=== PATIENT | male | born 1945 | race Caucasian/White ===

== ENCOUNTER 2020-08-14 20:23 | Emergency (ER) | payer OTHER ==
[~2020-08-14] VITALS: Ht 167.6 cm; Wt 65.3 kg
[~2020-08-14 20:23] MED LIST: ASPI81CH PO; CLIN300 PO; Daily Multiple1 EACH PO; GLUC500 PO; LISI5 PO; METO25 PO; OXYC5 PO; Senna-Docusate1 EACH PO; Simvastatin20 MG PO; Tylenol325 MG PO
[2020-08-14 20:44] LABS: BASOPHILS ABSOLUTE AUTO 0.02 K/mm3 (0.00-0.23); BASOPHILS PERCENT AUTO 0 % (0-2); EOSINOPHILS ABSOLUTE AUTO 0.02 K/mm3 (0.00-0.68); EOSINOPHILS PERCENT AUTO 0 % (0-6); Hemoglobin 13.5 g/dL (13.5-17.5); IMMATURE GRAN ABSOLUTE AUTO 0.05 K/mm3 (0.00-0.10); IMMATURE GRAN PERCENT AUTO 0 % (0-1); LYMPHOCYTES ABSOLUTE AUTO 0.88 K/mm3 (0.84-5.20); LYMPHOCYTES PERCENT AUTO 7 % (21-46); MONOCYTES ABSOLUTE AUTO 0.69 K/mm3 (0.16-1.47); MONOCYTES PERCENT AUTO 6 % (4-13); Mean Corpuscular HGB 27.3 pg (26.0-34.0); Mean Corpuscular HGB Conc 32.1 g/dL (31.5-36.5); Mean Corpuscular Volume 85 fL (80-100); Mean Platelet Volume 10.1 fL (9.1-12.4); NEUTROPHILS ABSOLUTE AUTO 10.92 K/mm3 (1.96-9.15); NEUTROPHILS PERCENT AUTO 87 % (41-73); Platelet Count 204 K/mm3 (150-400); RDW Standard Deviation 46.8 fL (35.1-46.3); Red Blood Cell Count 4.94 M/mm3 (4.30-5.90); White Blood Cell Count 12.58 K/mm3 (4.00-11.30)
[2020-08-14 21:03] LABS: Alanine Aminotransfer (ALT/SGP 36 U/L (12-78); Albumin, Blood 4.3 g/dL (3.4-5.0); Albumin/Globulin Ratio 1.1 (0.8-1.8); Alk Phos 57 U/L (50-136); Anion Gap 7 mmol/L (6-16); Aspartate Aminotrans (AST/SGOT 28 U/L (12-37); Bilirubin, Total 0.5 mg/dL (0.1-1.0); Blood Urea Nitrogen 21 mg/dL (8-24); Bun/Creatinine Ratio 23.6 (12.0-20.0); CO2, Blood 29 mmol/L (21-32); Calcium, Blood 9.7 mg/dL (8.5-10.1); Chloride, Blood 108 mmol/L (98-108); Creatinine, Blood 0.89 mg/dL (0.60-1.20); Globulin, Blood 3.9 g/dL (2.2-4.0); Glomerular Filtration Rate >60 (60-); Glucose, Blood 100 mg/dL (70-99); Potassium, Blood 3.6 mmol/L (3.5-5.5); Sodium, Blood 144 mmol/L (136-145); Total Protein, Blood 8.2 g/dL (6.4-8.2)
[2020-08-14 21:28] LABS: Source, Urine Clean Catch
[2020-08-14 21:31] LABS: Appearance, Urine Hazy (Clear); Bilirubin, Urine Neg (Neg); Blood, Urine 5+ (Neg); Color, Urine Yellow (P-Yellow); Glucose Qualitative, Urine Neg (Neg); Ketones, Urine 2+ (Neg); Leukocyte Esterase, Urine 3+ (Neg); Nitrite, Urine Neg (Neg); Protein, Urine 3+ (Neg); Urobilinogen, Urine NORM (Normal)
[2020-08-14 21:41] LABS: White Blood Cells, Urine TNTC /hpf (0-5)
[2020-08-14 21:42] LABS: Bacteria Many /hpf; Red Blood Cells, Urine 50-100 /hpf (0-2); Squamous Epithelial Cells Few /hpf (Few)
[2020-08-14] MEDS ORDERED: Keflex500 MG PO (23:05)
== END 2020-08-15 00:20 | disposition home or self-care (01) ==
LOC: ER 20:23
PROVIDERS: Emergency Medicine
DX: N39.0 Urinary tract infection, site not specified (principal); I25.10 Atherosclerotic heart disease of native coronary artery without angina pectoris; E78.5 Hyperlipidemia, unspecified; I10 Essential (primary) hypertension; Z79.82 Long term (current) use of aspirin; Z79.899 Other long term (current) drug therapy
CPT/HCPCS: 36415; 51701; 74176; 80053; 81001; 85025; 87077; 87086; 87186; 96365; 99284-25; J0696

== ENCOUNTER 2021-06-10 10:23 | Observation (INO) | payer OTHER ==
[~2021-06-10] VITALS: Ht 172.7 cm; Wt 73.0 kg
[~2021-06-10 10:23] MED LIST changes: +ASPIR 8181 M1 PO; +CEFP200 PO; +Cymbalta20 MG PO; -Daily Multiple1 EACH PO; +Hair, Skin & N1 EACH PO; +Keflex500 MG PO; -LISI5 PO; +WATER PILL; +ZESTRIL40 MG PO
[2021-06-10 12:58] LABS: BASOPHILS ABSOLUTE AUTO 0.01 K/mm3 (0.00-0.23); BASOPHILS PERCENT AUTO 0 % (0-2); EOSINOPHILS ABSOLUTE AUTO 0.09 K/mm3 (0.00-0.68); EOSINOPHILS PERCENT AUTO 2 % (0-6); Hematocrit 40.2 % (37.0-53.0); Hemoglobin 13.5 g/dL (13.5-17.5); IMMATURE GRAN ABSOLUTE AUTO 0.03 K/mm3 (0.00-0.10); IMMATURE GRAN PERCENT AUTO 1 % (0-1); LYMPHOCYTES ABSOLUTE AUTO 1.08 K/mm3 (0.84-5.20); LYMPHOCYTES PERCENT AUTO 18 % (21-46); MONOCYTES PERCENT AUTO 8 % (4-13); Mean Corpuscular HGB 27.6 pg (26.0-34.0); Mean Corpuscular HGB Conc 33.6 g/dL (31.5-36.5); Mean Corpuscular Volume 82 fL (80-100); Mean Platelet Volume 11.1 fL (9.1-12.4); NEUTROPHILS PERCENT AUTO 72 % (41-73); Platelet Count 201 K/mm3 (150-400); RDW Standard Deviation 41.3 fL (35.1-46.3); White Blood Cell Count 6.11 K/mm3 (4.00-11.30)
[2021-06-10 13:06] LABS: SARS-Cov-2 (COVID-19) PCR, MMC NEGATIVE (NEGATIVE)
[2021-06-10 13:25] LABS: International Normalized Ratio 0.99; Prothrombin Time Results 10.7 Sec (9.7-11.5)
[2021-06-10 13:37] LABS: Alanine Aminotransfer (ALT/SGP 40 U/L (12-78); Albumin, Blood 3.9 g/dL (3.4-5.0); Alk Phos 55 U/L (50-136); Anion Gap 4 mmol/L (6-16); Aspartate Aminotrans (AST/SGOT 48 U/L (12-37); Bilirubin, Total 0.6 mg/dL (0.1-1.0); Blood Urea Nitrogen 12 mg/dL (8-24); Bun/Creatinine Ratio 18.1 (12.0-20.0); CO2, Blood 29 mmol/L (21-32); Calcium, Blood 9.2 mg/dL (8.5-10.1); Chloride, Blood 108 mmol/L (98-108); Creatinine, Blood 0.66 mg/dL (0.60-1.20); Glomerular Filtration Rate >60 (60-); Glucose, Blood 112 mg/dL (70-99); Sodium, Blood 141 mmol/L (136-145); Total Protein, Blood 7.9 g/dL (6.4-8.2)
[2021-06-10] MEDS ORDERED: ATOR40TA PO (13:40)
[2021-06-10] MEDS ORDERED: FINA5 PO (13:41)
[2021-06-10] MEDS ORDERED: AMLO10 PO (13:41)
[2021-06-10] MEDS ORDERED: TAMS.4ER PO (13:42)
[2021-06-10] MEDS ORDERED: TEMA15 PO (13:43)
--- NOTE | 2021-06-10 15:34 | NUR ---
PATIENT EATING LUNCH. MEDICATED FOR PAIN IN RLE. LEG ADJUST ON PILLOW AND ICE APPLIED.
--- NOTE | 2021-06-10 15:35 | NUR ---
PATIENT EATING LUNCH. MEDICATED FOR PAIN 8/10 IN RIGHT LEG. "IT FEELS LIKE A NELIDA HORSE", LEG ADJUSTED ON PILLOW. ICE PACK APPLIED TO LEG.
--- NOTE | 2021-06-10 23:56 | NUR ---
LATE ENTRY: 89 PT SICK WITH NAUSEA, VOMITED X2, PT WAS MEDICATED, CLEANED UP AND CHANGED INTO GOWN, ASSISTED HIM TO BED,VSS,PT WITH COMPLAINTS OF PAIN, RIGHT LEG ELEVATED WITH TWO PILLOWS,ICE PACK BEHIND THE KNEE PROVIDED, PAIN MEDICATION ADMINISTERED.I EXPLAINED TO PT NPO STATUS AFTER MIDNIGHT. HE WAS AGREEABLE,JUICE AND WATER PROVIDED.PT SELF CATHS. HE WAS PROVIDED SELF CATH ITEMS. URINE WAS CLEAR AND YELLOW.AFTER PT WAS COMFORTABLE, BED IN LOW POSITION,SIDE RAILS UP,CALL LIGHT WITHIN REACH. WILL CONTINUE TO MONITOR AND ALLOW FOR REST.
--- NOTE | 2021-06-11 02:34 | NUR ---
PT UP TO BATHROOM VIA WHEEL CHAIR. SELF CATH ITEMS PROVIDED. PT BACK TO BED, PAIN ASSESED, NO NEED FOR MEDICATION,ICE PACK PROVIDED. PT REQUESTED TABLET. TABLET PROVIDED. BED IN LOW POSITION,SIDE RAILS UP, CALL LIGHT WITHIN REACH. WILL CONTINUE TO MONITOR.
--- NOTE | 2021-06-11 04:49 | NUR ---
PT NPO SINCE MIDNIGHT. READY FOR SURGERY. 18G IV RIGHT HAND WAS PLACED,20G LEFT AC REMOVED. PT CURRENTLY COMFORTABLE WITH NO C/O PAIN. ICE AND TWO PILLOW ELEVATION APPEARS TO PROVIDE SOME RELIEF. PT VSS, WILL REPORT TO DAY SHIFT RN.
--- NOTE | 2021-06-11 10:32 | NUR ---
PT RESTING IN BED WATCHING [employer] ON IPAD. RIGHT LEG ELEVATED VIA BED AND PILLOW. FRESH ICE PACK APPLIED BEHIND KNEE. PT STS 03/21. TYLENOL DID NOT PROVIDE ANY RELIEF. PT CALM AND SPEAKING CLEARLY, FLACC SCORE 0. PT REMEDICATED WITH IV MEDICATION ORDERED.
--- NOTE | 2021-06-11 11:13 | NUR ---
CARE MANAGEMENT INTO SEE PT
--- NOTE | 2021-06-11 12:53 | NUR ---
DR. LOMBARDI INTO SEE PT.
--- NOTE | 2021-06-11 14:05 | NUR ---
PT SLEEPING, EQUAL CHEST RISE AND FALL NOTED. APPEARS IN NAD.
--- NOTE | 2021-06-11 14:34 | NUR ---
PT TO [facility] VIA GUY.
--- NOTE | 2021-06-11 18:29 | NUR ---
SHIFT SUMMARY PT AWAITING SURGERY TODAY, NPO. PT CALM & PLEASANT. PAIN TOLERATED WELL WITH BOTH ORAL AND IV MEDICATION. PT SELF-CATH IN RESTROOM VIA WHEELCHAIR, PER REQUEST. PT TO DAY SURGERY, SURGERY START TIME APPROX 1530.
--- NOTE | 2021-06-11 21:04 | NUR ---
LATE ENTRY: PT BACK TO [facility] AT 192.TOOK REPORT FROM NELSON GLASER.PT VERY SLEEPY,ENCOURAGED TO DEEP BREATHE, SATS 87-94% ON 2L NASAL CANNULA, BP ELEVATED (SEE TRENDS), PT WITHOUT PAIN OR NAUSEA, SPLINT INTACT,CAP REFILL GOOD, ASSISTED HIM TO SELF CATH.800CC OF URINE DRAINED. AFTER A HALF HOUR SATS GOOD O2 D/C BUT EVENTUALLY PUT BACK ON. PT STILL DROWSY,TOLERATING PO FLUIDS AND JELLO. BP REMAINED ELEVATED,EVENING MEDS GIVEN. CONSULTED WITH ANESTHESIA PROVIDER RE:BP. HE ADVISED PT TO GET BACK ON HOME MED ROUTINE AND CONTINUE TO MONITOR. NO FURTHER ORDERS GIVEN. RIGHT LEG WAS ELEVATED ON TWO PILLOW AND ICE PACK PROVIDED. WILL CONTINUE TO MONITOR AND D/C THE O2 WHEN APPROPRIATE.
--- NOTE | 2021-06-12 05:42 | NUR ---
PT SITTING UP IN BED, PLAYING A GAME ON HIS PHONE.DENIES PAIN OR NAUSEA. STATES "I CANT FEEL A THING". BLOCK APPEARS TO HAVE WORKED WELL. PT SLEPT THE WHOLE EVENING. O2 WAS D/C SOMETIME BEFORE 0500. SATS CURRENTLY 96% ON RA. DRESSING INTACT. WILL CONTINUE TO MONITOR AND REPORT TO DAY SHIFT RN.
[2021-06-12 09:01] LABS: BASOPHILS ABSOLUTE AUTO 0.01 K/mm3 (0.00-0.23); BASOPHILS PERCENT AUTO 0 % (0-2); EOSINOPHILS PERCENT AUTO 0 % (0-6); Hematocrit 36.4 % (37.0-53.0); Hemoglobin 12.4 g/dL (13.5-17.5); IMMATURE GRAN ABSOLUTE AUTO 0.03 K/mm3 (0.00-0.10); IMMATURE GRAN PERCENT AUTO 0 % (0-1); LYMPHOCYTES ABSOLUTE AUTO 0.54 K/mm3 (0.84-5.20); LYMPHOCYTES PERCENT AUTO 5 % (21-46); MONOCYTES ABSOLUTE AUTO 0.51 K/mm3 (0.16-1.47); MONOCYTES PERCENT AUTO 4 % (4-13); Mean Corpuscular HGB 27.9 pg (26.0-34.0); Mean Corpuscular HGB Conc 34.1 g/dL (31.5-36.5); Mean Corpuscular Volume 82 fL (80-100); Mean Platelet Volume 10.3 fL (9.1-12.4); NEUTROPHILS ABSOLUTE AUTO 10.98 K/mm3 (1.96-9.15); NEUTROPHILS PERCENT AUTO 91 % (41-73); Platelet Count 171 K/mm3 (150-400); RDW Coefficient Variation 13.8 % (11.7-14.2); RDW Standard Deviation 40.6 fL (35.1-46.3); Red Blood Cell Count 4.45 M/mm3 (4.30-5.90); White Blood Cell Count 12.07 K/mm3 (4.00-11.30)
[2021-06-12 09:23] LABS: Anion Gap 8 mmol/L (6-16); Blood Urea Nitrogen 16 mg/dL (8-24); Bun/Creatinine Ratio 22.4 (12.0-20.0); CO2, Blood 27 mmol/L (21-32); Calcium, Blood 8.9 mg/dL (8.5-10.1); Chloride, Blood 103 mmol/L (98-108); Creatinine, Blood 0.71 mg/dL (0.60-1.20); Glomerular Filtration Rate >60 (60-); Glucose, Blood 184 mg/dL (70-99); Potassium, Blood 3.6 mmol/L (3.5-5.5); Sodium, Blood 138 mmol/L (136-145)
[2021-06-12 16:28] LABS: SARS-Cov-2 (COVID-19) PCR, MMC NEGATIVE (NEGATIVE)
== END 2021-06-12 17:38 ==
LOC: ER 10:23 → ERHOLD 10:24 → ORSCIP 10:24 → ERHOLD 10:24 → ORSCIP 14:11
PROVIDERS: Emergency Medicine; Internal Medicine; Nurse Practitioner Acute Care; ADMIT Orthopaedic Surgery
DX: S82.301A Unspecified fracture of lower end of right tibia, initial encounter for closed fracture (principal); S82.831B Other fracture of upper and lower end of right fibula, initial encounter for open fracture type I or II; S50.311A Abrasion of right elbow, initial encounter; I25.10 Atherosclerotic heart disease of native coronary artery without angina pectoris; I10 Essential (primary) hypertension; F32.9 Major depressive disorder, single episode, unspecified; N40.0 Benign prostatic hyperplasia without lower urinary tract symptoms; E78.5 Hyperlipidemia, unspecified; F43.10 Post-traumatic stress disorder, unspecified; M19.90 Unspecified osteoarthritis, unspecified site; W17.81XA Fall down embankment (hill), initial encounter; Y92.828 Other wilderness area as the place of occurrence of the external cause; Z20.822 Contact with and (suspected) exposure to COVID-19; Z95.1 Presence of aortocoronary bypass graft; Z79.82 Long term (current) use of aspirin; Z91.038 Other insect allergy status
CPT/HCPCS: 29515; 36415; 73562-RT; 73590; 73610; 80048; 80053; 85025; 85610; 96365; 96366; 96374-59; 96375; 96375-59; 96376; 96376-59; 97116; 97162; 97165; 97530; 99284-25; A9270; C1713; C1769; G0378; J0171; J0690; J1100; J1170; J1885; J2250; J2370; J2405; J2704; J3010; J7120; U0004

== ENCOUNTER 2022-08-29 18:20 | Emergency (ER) | payer OTHER ==
[~2022-08-29] VITALS: Ht 170.2 cm; Wt 77.1 kg
[~2022-08-29 18:20] MED LIST changes: +AMLO10 PO; +ATOR40TA PO; +FINA5 PO; +TAMS.4ER PO; +TEMA15 PO
[2022-08-29 19:59] LABS: Influenza A, PCR NEGATIVE (NEGATIVE); Influenza B, PCR NEGATIVE (NEGATIVE); Resp Syncytial Virus, PCR NEGATIVE (NEGATIVE)
[2022-08-29 20:14] LABS: SARS-Cov-2 (COVID-19) PCR, MMC POSITIVE (NEGATIVE)
== END 2022-08-29 23:28 | disposition home or self-care (01) ==
LOC: ER 18:20
PROVIDERS: Emergency Medicine
DX: U07.1 COVID-19 (principal); Z91.038 Other insect allergy status; Z79.899 Other long term (current) drug therapy; Z79.82 Long term (current) use of aspirin
CPT/HCPCS: 0241U; A9270; J1885; J2405; J7030

== ENCOUNTER 2023-04-20 18:05 | Emergency (ER) | payer OTHER ==
[~2023-04-20] VITALS: Ht 172.7 cm; Wt 77.6 kg
[2023-04-20 18:26] VITALS: BP 149/70
[2023-04-20 19:10] LABS: BASOPHILS ABSOLUTE AUTO 0.01 K/mm3 (0.00-0.23); BASOPHILS PERCENT AUTO 0 % (0-2); EOSINOPHILS PERCENT AUTO 0 % (0-6); Hematocrit 43.2 % (37.0-53.0); Hemoglobin 14.5 g/dL (13.5-17.5); IMMATURE GRAN ABSOLUTE AUTO 0.04 K/mm3 (0.00-0.10); IMMATURE GRAN PERCENT AUTO 0 % (0-1); LYMPHOCYTES ABSOLUTE AUTO 0.78 K/mm3 (0.84-5.20); LYMPHOCYTES PERCENT AUTO 6 % (21-46); MONOCYTES ABSOLUTE AUTO 1.01 K/mm3 (0.16-1.47); MONOCYTES PERCENT AUTO 7 % (4-13); Mean Corpuscular HGB 27.5 pg (26.0-34.0); Mean Corpuscular HGB Conc 33.6 g/dL (31.5-36.5); Mean Corpuscular Volume 82 fL (80-100); Mean Platelet Volume 10.3 fL (9.1-12.4); NEUTROPHILS ABSOLUTE AUTO 12.25 K/mm3 (1.96-9.15); NEUTROPHILS PERCENT AUTO 87 % (41-73); Platelet Count 216 K/mm3 (150-400); RDW Coefficient Variation 14.4 % (11.7-14.2); RDW Standard Deviation 42.6 fL (35.1-46.3); Red Blood Cell Count 5.27 M/mm3 (4.30-5.90); White Blood Cell Count 14.09 K/mm3 (4.00-11.30)
[2023-04-20 19:30] LABS: Albumin, Blood 3.8 g/dL (3.4-5.0); Bilirubin, Total 1.3 mg/dL (0.1-1.0); Bun/Creatinine Ratio 18.5 (12.0-20.0); Calcium, Blood 9.2 mg/dL (8.5-10.1); Creatinine, Blood 1.08 mg/dL (0.60-1.20); Globulin, Blood 3.8 g/dL (2.2-4.0); Potassium, Blood 4.2 mmol/L (3.5-5.5); Total Protein, Blood 7.6 g/dL (6.4-8.2)
[2023-04-20] MEDS ORDERED: BISA5EC PO (22:01)
[2023-04-20] MEDS ORDERED: MIRALAX17 GM PO (22:01)
== END 2023-04-20 22:21 | disposition home or self-care (01) ==
LOC: ER 18:05
PROVIDERS: Student in an Organized Health Care Education/Training Program
DX: K59.00 Constipation, unspecified (principal); Z91.030 Bee allergy status; Z79.899 Other long term (current) drug therapy; Z79.82 Long term (current) use of aspirin; I25.10 Atherosclerotic heart disease of native coronary artery without angina pectoris; I10 Essential (primary) hypertension; E78.5 Hyperlipidemia, unspecified; F43.10 Post-traumatic stress disorder, unspecified
CPT/HCPCS: 74177; 80053; 85025; 99284-25; A9270; Q9967

== ENCOUNTER 2025-01-25 06:09 | Emergency (ER) | payer MEDICARE ==
[~2025-01-25] VITALS: Ht 167.6 cm; Wt 77.1 kg
[~2025-01-25 06:09] MED LIST changes: +BISA5EC PO; +MIRALAX17 GM PO
[2025-01-25] MEDS ORDERED: Mag Hydrox/AL Hydrox/Simeth 30 ML UDC PO ONE (06:25)
[2025-01-25] MEDS ORDERED: Lidocaine 2% Viscous Soln 15 ML UDC PO ONE (06:25)
[2025-01-25 06:42] LABS: BASOPHILS ABSOLUTE AUTO 0.02 K/mm3 (0.00-0.23); BASOPHILS PERCENT AUTO 0 % (0-2); EOSINOPHILS ABSOLUTE AUTO 0.12 K/mm3 (0.00-0.68); EOSINOPHILS PERCENT AUTO 2 % (0-6); Hematocrit 40.9 % (37.0-53.0); Hemoglobin 13.6 g/dL (13.5-17.5); IMMATURE GRAN ABSOLUTE AUTO 0.01 K/mm3 (0.00-0.10); IMMATURE GRAN PERCENT AUTO 0 % (0-1); LYMPHOCYTES ABSOLUTE AUTO 1.39 K/mm3 (0.84-5.20); LYMPHOCYTES PERCENT AUTO 23 % (21-46); MONOCYTES ABSOLUTE AUTO 0.67 K/mm3 (0.16-1.47); MONOCYTES PERCENT AUTO 11 % (4-13); Mean Corpuscular HGB Conc 33.3 g/dL (31.5-36.5); Mean Corpuscular Volume 84 fL (80-100); Mean Platelet Volume 10.3 fL (9.1-12.4); NEUTROPHILS ABSOLUTE AUTO 3.88 K/mm3 (1.96-9.15); NEUTROPHILS PERCENT AUTO 64 % (41-73); Platelet Count 193 K/mm3 (150-400); RDW Coefficient Variation 14.5 % (11.7-14.2); RDW Standard Deviation 44.2 fL (35.1-46.3); Red Blood Cell Count 4.86 M/mm3 (4.30-5.90); White Blood Cell Count 6.09 K/mm3 (4.00-11.30)
[2025-01-25 06:51] LABS: Albumin, Blood 3.7 g/dL (3.4-5.0); Bilirubin, Total 0.7 mg/dL (0.1-1.0); Calcium, Blood 8.6 mg/dL (8.5-10.1); Creatinine, Blood 0.87 mg/dL (0.60-1.20); Globulin, Blood 3.8 g/dL (2.2-4.0); Potassium, Blood 3.9 mmol/L (3.5-5.5); Total Protein, Blood 7.5 g/dL (6.4-8.2)
[2025-01-25] MEDS ORDERED: Ondansetron HCl 2 MG / ML 2ML Vial IV ONE ×2 (07:30→10:40)
[2025-01-25] MEDS ORDERED: FentaNYL Citrate 50 MCG/ML 2 ML Injection IV ONE (07:35)
[2025-01-25 09:07] LABS: Source, Urine Straight Cath
[2025-01-25 09:11] LABS: Appearance, Urine Clear (Clear); Bilirubin, Urine Neg (Neg); Blood, Urine 1+ (Neg); Color, Urine Yellow (P-Yellow); Glucose Qualitative, Urine Neg (Neg); Ketones, Urine Neg (Neg); Leukocyte Esterase, Urine 2+ (Neg); Nitrite, Urine Pos (Neg); Protein, Urine 2+ (Neg); Urobilinogen, Urine NORM (Normal)
[2025-01-25 09:20] LABS: Hyaline Casts 0-2 /lpf (0-2)
[2025-01-25 09:25] LABS: Red Blood Cells, Urine 0-2 /hpf (0-2)
[2025-01-25 09:27] LABS: Bacteria Many /hpf; Squamous Epithelial Cells Rare /hpf (Few); Transitional Epithelial Cells Rare /hpf (0-Rare)
[2025-01-25] MEDS ORDERED: Cephalexin Monohydrate 500 MG Cap PO ONE (09:35)
[2025-01-25] MEDS ORDERED: Ondansetron 4 MG TAB PO ONE (09:40)
[2025-01-25] MEDS ORDERED: CEPH500 PO (09:43)
[2025-01-25 10:30] VITALS: BP 181/146
== END 2025-01-25 12:18 | disposition home or self-care (01) ==
LOC: ER 06:09
PROVIDERS: Student in an Organized Health Care Education/Training Program
DX: R10.13 Epigastric pain (principal); N39.0 Urinary tract infection, site not specified; I10 Essential (primary) hypertension; E78.5 Hyperlipidemia, unspecified; Z91.038 Other insect allergy status; Z79.899 Other long term (current) drug therapy; Z79.51 Long term (current) use of inhaled steroids; Z79.52 Long term (current) use of systemic steroids; Z79.1 Long term (current) use of non-steroidal anti-inflammatories (NSAID); Z79.891 Long term (current) use of opiate analgesic; Z79.83 Long term (current) use of bisphosphonates
CPT/HCPCS: 71275; 74174; 80053; 81001; 83690; 84484; 85025; 87077; 87086; 87186; 93005; 93010; 96374-59; 96375-59; 96376-59; 99284-25; A9270; J2405; J3010; Q9967

== ENCOUNTER 2025-09-24 09:29 | Emergency (ER) | payer OTHER ==
[~2025-09-24] VITALS: Ht 172.7 cm; Wt 90.7 kg
[~2025-09-24 09:29] MED LIST changes: +AMOCLA875 PO; +ASPIRIN PO; +ATOR10 PO; +AZIT250 PO; +CEPH500 PO; +GLUCOSAMINE PO; +LACT PO; +LISI20 PO; +MIRT15 PO; +MISCINPPO PO; +ONDA4 PO; +ONDA4ODT MM; +TYLENOL PO; +ZESTRIL40 M1 PO
[2025-09-24 11:07] LABS: Alanine Aminotransfer (ALT/SGP 46.0 U/L (12-78); Albumin, Blood 3.7 g/dL (3.4-5.0); Albumin/Globulin Ratio 0.9 (0.8-1.8); Anion Gap 8.0 mmol/L (3-11); Aspartate Aminotrans (AST/SGOT 40.0 U/L (12-37); Bilirubin, Total 0.6 mg/dL (0.1-1.0); Blood Urea Nitrogen 14.0 mg/dL (8-24); CO2, Blood 24.0 mmol/L (21-32); Calcium, Blood 9.2 mg/dL (8.5-10.1); Chloride, Blood 110.0 mmol/L (98-108); Creatinine, Blood 0.77 mg/dL (0.60-1.20); Globulin, Blood 3.9 g/dL (2.2-4.0); Glucose, Blood 101.0 mg/dL (70-99); Potassium, Blood 4.1 mmol/L (3.5-5.5); Sodium, Blood 138.0 mmol/L (136-145); Total Protein, Blood 7.6 g/dL (6.4-8.2)
[2025-09-24 11:19] LABS: BASOPHILS ABSOLUTE AUTO 0.02 K/mm3 (0.00-0.23); BASOPHILS PERCENT AUTO 0 % (0-2); EOSINOPHILS ABSOLUTE AUTO 0.10 K/mm3 (0.00-0.68); EOSINOPHILS PERCENT AUTO 2 % (0-6); Hematocrit 41.3 % (37.0-53.0); Hemoglobin 13.5 g/dL (13.5-17.5); IMMATURE GRAN ABSOLUTE AUTO 0.02 K/mm3 (0.00-0.10); IMMATURE GRAN PERCENT AUTO 0 % (0-1); LYMPHOCYTES ABSOLUTE AUTO 1.30 K/mm3 (0.84-5.20); LYMPHOCYTES PERCENT AUTO 21 % (21-46); MONOCYTES ABSOLUTE AUTO 0.51 K/mm3 (0.16-1.47); MONOCYTES PERCENT AUTO 8 % (4-13); Mean Corpuscular HGB Conc 32.7 g/dL (31.5-36.5); Mean Corpuscular Volume 85 fL (80-100); NEUTROPHILS ABSOLUTE AUTO 4.26 K/mm3 (1.96-9.15); NEUTROPHILS PERCENT AUTO 69 % (41-73); NRBC ABSOLUTE 0.00 K/mm3 (0.00-0.02); NRBC Auto 0.0 /100 WBC (0.0-0.2); Platelet Count 211 K/mm3 (150-400); RDW Coefficient Variation 13.7 % (11.7-14.2); RDW Standard Deviation 42.7 fL (35.1-46.3)
[2025-09-24 11:22] LABS: Source, Urine Clean Catch
[2025-09-24 11:31] LABS: Bilirubin, Urine Neg (Neg); Glucose Qualitative, Urine Neg (Neg); Ketones, Urine Neg (Neg); Leukocyte Esterase, Urine 3+ (Neg); Protein, Urine 2+ (Neg); Specific Gravity, Urine 1.010 (1.003-1.022); Urobilinogen, Urine NORM (Normal)
[2025-09-24 11:38] LABS: Color, Urine Pale Yellow (P-Yellow)
[2025-09-24 11:39] LABS: Red Blood Cells, Urine 0-2 /hpf (0-2); White Blood Cells, Urine 25-50 /hpf (0-5)
[2025-09-24 11:49] LABS: Yeast/Fungi Urine Rare /hpf
[2025-09-24 12:15] VITALS: BP 157/86
[2025-09-24] MEDS ORDERED: CLOP75 PO (16:00)
[2025-10-02] MEDS ORDERED: LEVFLO500 PO (09:47)
== END 2025-09-24 17:01 ==
LOC: ER 09:29
PROVIDERS: Emergency Medicine
DX: R42 Dizziness and giddiness (principal); I65.01 Occlusion and stenosis of right vertebral artery; I65.22 Occlusion and stenosis of left carotid artery; R82.90 Unspecified abnormal findings in urine; E78.5 Hyperlipidemia, unspecified; I10 Essential (primary) hypertension; I25.2 Old myocardial infarction; Z95.1 Presence of aortocoronary bypass graft; Z91.030 Bee allergy status; Z79.82 Long term (current) use of aspirin; Z79.899 Other long term (current) drug therapy
CPT/HCPCS: 70450; 70496; 70498; 71045; 80053; 81001; 83880; 84484; 85025; 87077; 87086; 87186; 93005; 93010; 99285-25; Q9967